=== PATIENT | male | born 1975 | race Caucasian/White ===

== ENCOUNTER 2020-07-24 08:28 | Emergency (ER) | payer OTHER ==
[~2020-07-24 08:28] MED LIST: CATAPRES 0.1MG0.1 MG PO; CLEOCIN HCL150 MG PO; IBU600 MG PO; MORGIDOX100 MG PO; NORCO 5-325 TA1 EACH PO; POLYSPORIN OP3.5 GM TOP; ZOFRAN ODT 4 MG4 MG SL
[2020-07-24 11:42] LABS: HEMOGLOBIN 16.8 gm/dl (14.0-17.5); RED BLOOD COUNT 5.48 M/UL (4.20-5.50); WHITE BLOOD COUNT 7.8 K/UL (4.5-11.0)
[2020-07-24 12:05] LABS: BUN/CREATININE RATIO 11 (0-10)
[2020-07-24] MEDS ORDERED: CEPHALEXIN500 MG PO (12:48)
== END 2020-07-24 13:09 | disposition home or self-care (01) ==
LOC: ER1 08:28
PROVIDERS: Physician Assistant
DX: I10 Essential (primary) hypertension (principal); L03.031 Cellulitis of right toe; J45.909 Unspecified asthma, uncomplicated; Z88.0 Allergy status to penicillin; Z79.899 Other long term (current) drug therapy
CPT/HCPCS: 70450; 73660; 80053; 82550; 82553; 83874; 84484; 85025; 87070; 87205; 93005; 99284

== ENCOUNTER 2020-08-04 18:12 | Emergency (ER) | payer OTHER ==
[~2020-08-04 18:12] MED LIST changes: +CEPHALEXIN500 MG PO
[2020-08-04 19:08] LABS: HEMOGLOBIN 13.8 gm/dl (14.0-17.5); RED BLOOD COUNT 4.51 M/UL (4.20-5.50); WHITE BLOOD COUNT 5.7 K/UL (4.5-11.0)
[2020-08-04 19:29] LABS: BUN/CREATININE RATIO 21 (0-10)
== END 2020-08-04 23:38 | disposition home or self-care (01) ==
LOC: ER1 18:12
PROVIDERS: Physician Assistant Medical
DX: M79.631 Pain in right forearm (principal); R22.31 Localized swelling, mass and lump, right upper limb; I10 Essential (primary) hypertension; Z88.0 Allergy status to penicillin; Z88.6 Allergy status to analgesic agent
CPT/HCPCS: 73090; 80053; 85025; 85379; 85610; 85730; 99285; J1650; Q9967

== ENCOUNTER → 2020-08-09 | Outpatient (CLI) | payer OTHER | LOC: US 14:50 | DX: M79.89 Other specified soft tissue disorders (principal) | CPT/HCPCS: 93971 ==

== ENCOUNTER 2020-11-03 20:18 | Emergency (ER) | payer OTHER | END 2020-11-04 00:20 | disposition home or self-care (01) | LOC: ER1 20:18 | DX: R05 Cough (principal); R51.9 Headache, unspecified; J45.909 Unspecified asthma, uncomplicated; I10 Essential (primary) hypertension; Z90.89 Acquired absence of other organs; Z88.0 Allergy status to penicillin; Z20.822 Contact with and (suspected) exposure to COVID-19 | CPT/HCPCS: 99283; U0002 ==

== ENCOUNTER 2020-11-27 14:20 | Emergency (ER) | payer OTHER ==
[2020-11-27 16:04] LABS: HEMOGLOBIN 13.7 gm/dl (14.0-17.5); RED BLOOD COUNT 5.35 M/UL (4.20-5.50); WHITE BLOOD COUNT 6.2 K/UL (4.5-11.0)
[2020-11-27 16:48] LABS: BUN/CREATININE RATIO 11 (0-10)
[2020-11-27] MEDS ORDERED: AMLODIPINE BESYL5 MG PO (19:18)
== END 2020-11-27 19:53 | disposition home or self-care (01) ==
LOC: ER1 14:20
PROVIDERS: Physician Assistant
DX: I10 Essential (primary) hypertension (principal); R42 Dizziness and giddiness
CPT/HCPCS: 71045; 80053; 82550; 82553; 83874; 84484; 85025; 93005; 99284

== ENCOUNTER 2021-03-06 14:06 | Emergency (ER) | payer OTHER ==
[~2021-03-06] VITALS: Ht 188 cm; Wt 79.8 kg
[~2021-03-06 14:06] MED LIST changes: +AMLODIPINE BESYL5 MG PO
== END 2021-03-06 17:00 | disposition home or self-care (01) ==
LOC: ER1 14:06
DX: U07.1 COVID-19 (principal); Z23 Encounter for immunization; J45.909 Unspecified asthma, uncomplicated; I10 Essential (primary) hypertension; Z88.0 Allergy status to penicillin; Z88.8 Allergy status to other drugs, medicaments and biological substances
CPT/HCPCS: 99283; M0245

== ENCOUNTER 2021-03-24 13:22 | Emergency (ER) | payer OTHER | END 2021-03-24 14:27 | disposition home or self-care (01) | LOC: ER1 13:22 | DX: M72.2 Plantar fascial fibromatosis (principal); I10 Essential (primary) hypertension | CPT/HCPCS: 73630; 99283 ==

== ENCOUNTER 2021-04-16 07:40 | Emergency (ER) | payer OTHER ==
[2021-04-16 09:08] LABS: BUN/CREATININE RATIO 10 (0-10)
[2021-04-16 09:11] LABS: HEMOGLOBIN 15.7 gm/dl (14.0-17.5); RED BLOOD COUNT 4.99 M/UL (4.20-5.50); WHITE BLOOD COUNT 5.9 K/UL (4.5-11.0)
[2021-04-16] MEDS ORDERED: IBU600 MG PO (11:43)
== END 2021-04-16 11:44 | disposition home or self-care (01) ==
LOC: ER1 07:40
PROVIDERS: Student in an Organized Health Care Education/Training Program
DX: U07.1 COVID-19 (principal); I10 Essential (primary) hypertension; Z88.0 Allergy status to penicillin; R55 Syncope and collapse
CPT/HCPCS: 0240U; 71045; 80053; 82550; 82553; 83690; 83874; 84484; 85025; 87081; 87880; 93005; 99284

== ENCOUNTER 2021-05-02 18:06 | Emergency (ER) | payer OTHER ==
[2021-05-02 23:38] LABS: HEMOGLOBIN 15.6 gm/dl (14.0-17.5); WHITE BLOOD COUNT 7.1 K/UL (4.5-11.0)
[2021-05-03 00:08] LABS: BUN/CREATININE RATIO 13 (0-10)
[2021-05-03] MEDS ORDERED: K-TAB ER20 MEQ PO (00:37)
== END 2021-05-03 00:40 | disposition home or self-care (01) ==
LOC: ER1 18:06
PROVIDERS: Physician Assistant
DX: E87.6 Hypokalemia (principal); G25.2 Other specified forms of tremor; I10 Essential (primary) hypertension; J45.909 Unspecified asthma, uncomplicated; Z88.2 Allergy status to sulfonamides; Z88.0 Allergy status to penicillin; Z86.16 Personal history of COVID-19
CPT/HCPCS: 80048; 85025; 99284